=== PATIENT | male | born 1975 | race Two or more races ===

== ENCOUNTER → 2024-08-11 | Outpatient (CLI) | payer MEDICARE, MEDICAID, SELFPAY ==
[2024-08-11 08:27] VITALS: BP 151/88; PULSE 65; RESP 18; TEMP 36.3; O2SAT 97; BMI 29.7
[2024-08-11] MEDS: FILTER MICRON CONICAL IV (08:50)
[2024-08-11] MEDS: STERILE WATER IV (08:50)
[2024-08-11] MEDS: INFLIXIMAB DYYB IV (08:50)
[2024-08-11] MEDS: [UNRECOGNIZED DRUG - OTHER] IV (08:50)
[2024-08-11 11:05] VITALS: BP 142/94; PULSE 70; RESP 18; TEMP 36.4; O2SAT 95
== END | disposition home or self-care (01) ==
PROVIDERS: PCP Physician Assistant; Referring Provider Specialist; Visit Provider Specialist
PROC: (CPT 96365; principal; 2024-08-11 08:00)
DX: K58.0 Irritable bowel syndrome with diarrhea (principal)
CPT/HCPCS: 96365; 96366; A4216; J7050; Q5103

== ENCOUNTER → 2024-10-13 | Outpatient (CLI) | payer MEDICARE, MEDICAID, SELFPAY ==
[2024-10-13 08:30] VITALS: BP 150/95; PULSE 59; RESP 14; TEMP 36.3; O2SAT 97; BMI 33.4
[2024-10-13 11:01] VITALS: BP 159/92; PULSE 60; RESP 16; TEMP 36.2; O2SAT 96
== END | disposition home or self-care (01) ==
LOC: SFLEX 08:11
PROVIDERS: PCP Physician Assistant; Referring Provider Specialist; Visit Provider Specialist
PROC: (CPT 96365; principal; 2024-10-13 08:00)
DX: K58.0 Irritable bowel syndrome with diarrhea (principal)
CPT/HCPCS: 96365; 96366; A4216; J7050; Q5103

== ENCOUNTER → 2024-12-02 | Outpatient (CLI) | payer MEDICARE, MEDICAID, SELFPAY ==
[2024-12-02 09:10] VITALS: BMI 33.5
[2024-12-02 09:45] VITALS: BP 152/86; PULSE 59; RESP 14; TEMP 36.6; O2SAT 95
[2024-12-02 10:50] VITALS: BP 179/95; PULSE 70; RESP 17; TEMP 36.6; O2SAT 96
--- NOTE | 2024-12-02 10:50 | SUR.OPER ---
pt reports itchiness and bumps to face, upon assessment, pt has red bumps to face, chest, and neck, bilateral eyes are red, VS stable, no other symptoms, infusion paused, will inform Dr Escoto
--- NOTE | 2024-12-02 10:53 | SUR.OPER ---
informed Dr Escoto of pt signs/symptoms, orders placed, will give.
[2024-12-02] MEDS: DiphenhydrAMINE INJ 50 MG/ML VIAL IVP (11:00)
--- NOTE | 2024-12-02 11:00 | SUR.OPER ---
per pt, symptoms improving, eyes are less reddened, VS stable, pt states he is okay to restart infusion, infusion re-started per Dr Escoto.
--- NOTE | 2024-12-02 12:20 | SUR.OPER ---
pt states he has no itching, irritation or any other symptoms, pt face/neck/chest/eyes are free of irritation, redness, and/or bumps upon assessment.
[2024-12-02 12:35] VITALS: BP 150/88; PULSE 71; RESP 18; TEMP 36.4; O2SAT 97
== END | disposition home or self-care (01) ==
LOC: SFLEX 09:07
PROVIDERS: PCP Physician Assistant; Referring Provider Specialist; Visit Provider Specialist
PROC: (CPT 96365; principal; 2024-12-02 09:30)
DX: K58.0 Irritable bowel syndrome with diarrhea (principal)
CPT/HCPCS: 96365; 96366; A4216; J1200; J1745; J2919; J7050

== ENCOUNTER → 2025-02-13 | Outpatient (CLI) | payer MEDICARE, MEDICAID, SELFPAY ==
[2025-02-13] MEDS: [UNRECOGNIZED DRUG - OTHER] IV (09:16)
[2025-02-13] MEDS: STERILE WATER IV (09:16)
[2025-02-13] MEDS: FILTER MICRON CONICAL IV (09:16)
[2025-02-13] MEDS: INFLIXIMAB IV (09:16)
[2025-02-13 09:30] VITALS: BP 144/89; PULSE 69; RESP 18; TEMP 36.2; O2SAT 95; BMI 34.9
[2025-02-13 11:25] VITALS: BP 150/88; PULSE 63; RESP 16; TEMP 36.3; O2SAT 95
== END | disposition home or self-care (01) ==
LOC: SFLEX 08:28
PROVIDERS: PCP Physician Assistant; Referring Provider Specialist; Visit Provider Specialist
PROC: (CPT 96365; 2025-02-13 09:00)
DX: K58.0 Irritable bowel syndrome with diarrhea (principal)
CPT/HCPCS: 96365; 96366; 96375; A4216; J1200; J1745; J2919; J7050

== ENCOUNTER → 2025-03-24 | Outpatient (CLI) | payer MEDICARE, MEDICAID, SELFPAY ==
[2025-03-24 08:41] VITALS: BP 150/82; PULSE 75; RESP 16; TEMP 36.5; O2SAT 96; BMI 34.7
[2025-03-24 11:33] VITALS: BP 141/78; PULSE 69; RESP 17; TEMP 36.4; O2SAT 95
== END | disposition home or self-care (01) ==
PROVIDERS: PCP Physician Assistant; Referring Provider Specialist; Visit Provider Specialist
PROC: (CPT 96365; principal; 2025-03-24 09:00)
DX: K58.8 Other irritable bowel syndrome (principal)
CPT/HCPCS: 96365; 96366; A4216; J1200; J1745; J2919; J7050

== ENCOUNTER → 2025-05-19 | Outpatient (CLI) | payer MEDICARE, MEDICAID, SELFPAY ==
--- NOTE | 2025-05-19 09:13 | SUR.PREOP ---
Patient expressed gratitude for visit and prayer.
[2025-05-19 09:51] VITALS: BP 164/83; PULSE 58; RESP 18; TEMP 36.1; O2SAT 98; BMI 38.9
[2025-05-19 11:50] VITALS: BP 152/91; PULSE 66; RESP 18; TEMP 36; O2SAT 97
== END | disposition home or self-care (01) ==
LOC: SFLEX 08:29
PROVIDERS: PCP Physician Assistant; Referring Provider Specialist; Visit Provider Specialist
PROC: (CPT 96365; principal; 2025-05-19 09:00)
DX: K58.0 Irritable bowel syndrome with diarrhea (principal)
CPT/HCPCS: 96365; 96366; 96375; A4216; J1200; J1745; J2919; J7050

== ENCOUNTER 2025-06-09 09:20 | Day surgery (SDC) | payer MEDICARE, MEDICAID, SELFPAY ==
[2025-06-08 13:32] VITALS: BMI 34.1
[2025-06-09] VITALS (8 sets, daily range): BP systolic 150–181; BP diastolic 74–103; PULSE 66–83; RESP 13–17; TEMP 36.3–36.8; O2SAT 95–99; BMI 33.6
[2025-06-09] MEDS: SODIUM CHLORIDE 0.9% 500 ML 500 ML 20 ML IV (11:39)
[2025-06-09] MEDS: fentaNYL CIT INJ 50 mCg/ML AMP 2ML (ASD USE ONLY) IVP (11:44)
[2025-06-09] MEDS: MIDAZOLAM INJ 1 MG/ML VIAL 2 ML (ASD USE ONLY) 2 MG IVP (11:44)
== END 2025-06-09 12:40 | disposition home or self-care (01) ==
PROVIDERS: PCP Physician Assistant; Referring Provider Specialist; Visit Provider Specialist
PROC: 0DBE8ZX Excision of Large Intestine, Via Natural or Artificial Opening Endoscopic, Diagnostic (ICD-10-PCS; CPT 45380; principal; 2025-06-09 12:30)
DX: K51.011 Ulcerative (chronic) pancolitis with rectal bleeding (principal); K62.89 Other specified diseases of anus and rectum; K63.89 Other specified diseases of intestine; K64.1 Second degree hemorrhoids
CPT/HCPCS: 45380; A4649; J1200; J2250; J3010; J7999